=== PATIENT | male | born 2000 | race Two or more races ===

== ENCOUNTER 2020-05-20 10:58 | Emergency (ER) | payer SELFPAY ==
[~2020-05-20] VITALS: Ht 165.1 cm; Wt 68.1 kg
[~2020-05-20 10:58] MED LIST: CIPR250T30 PO; LACT1TAB24 PO; METR500T PO
[2020-05-20 11:16] VITALS: BP 158/94
[2020-05-20] MEDS ORDERED: IBUP-1007 PO (11:54)
--- NOTE | 2020-05-20 11:54 | PHYS DOC ---
Past Medical History Past Medical History: No Pertinent History Past Surgical History: No Surgical History Smoking Status: Never Smoker Alcohol Use: None Drug Use: None General Adult EDM: Chief Complaint: THUMB HPI: HPI: Patient is a 19-year-old male who presents with chief complaint of right thumb injury. He states yesterday he dropped an approximately 10 pound weight on it while working out. He states he has noticed pain to the dorsal aspect of the right thumb. He does note some limitations in active range of motion due to the pain. He has not tried medicine at home. He notes mild swelling. He denies any bleeding under the nail bed. Denies any wrist pain. Denies any pain over the anatomic snuffbox. Denies numbness tingling. Denies weakness. No other complaints. Review of Systems: Review of Systems: Constitutional: Denies fever or chills. [] Eyes: Denies change in visual acuity. [] HENT: Denies nasal congestion or sore throat. [] Respiratory: Denies cough or shortness of breath. [] Cardiovascular: Denies chest pain or edema. [] GI: Denies abdominal pain, nausea, vomiting, bloody stools or diarrhea. [] : Denies dysuria. [] Musculoskeletal: Positive for arthralgia Integument: Denies rash. [] Neurologic: Denies headache, focal weakness or sensory changes. [] Endocrine: Denies polyuria or polydipsia. [] Lymphatic: Denies swollen glands. [] Psychiatric: Denies depression or anxiety. [] Heart Score: Risk Factors: Risk Factors: DM, Current or recent (<one month) smoker, HTN, HLP, family history of CAD, obesity. Risk Scores: Score 0 - 3: 2.5% MACE over next 6 weeks - Discharge Home Score 4 - 6: 20.3% MACE over next 6 weeks - Admit for Clinical Observation Score 7 - 10: 72.7% MACE over next 6 weeks - Early Invasive Strategies Allergies: Allergies: Allergies Coded Allergies Type Severity Reaction Last Updated Verified No Known Drug Allergies 05/19/19 No Physical Exam: PE: Constitutional: Well developed, well nourished, no acute distress, non-toxic appearance. [] HENT: Normocephalic, atraumatic, bilateral external ears normal, oropharynx moist, no oral exudates, nose normal. [] Eyes: PERRLA, EOMI, conjunctiva normal, no discharge. [] Neck: Normal range of motion, no tenderness, supple, no stridor. [] Cardiovascular:Heart rate regular rhythm, no murmur [] Lungs & Thorax: Bilateral breath sounds clear to auscultation [] Abdomen: soft, no tenderness, no masses, no pulsatile masses. [] Skin: Warm, dry, no erythema, no rash. [] Back: No tenderness, no CVA tenderness. [] Extremities: R HAND/WRIST: Tenderness to palpation present at the dorsal aspect of the proximal right thumb.. Anatomic snuffbox without tenderness to palpation. Joints exhibit active range of motion without ligamentous laxity or instability. All tendons tested actively and against resistance without laxity. Subungual hematomas and nail injuries are absent. Radial pulse is present; +2/4. Capillary refill is less than 2 seconds. Sensation is intact in the median, ulnar and radial nerve distributions. Strength is intact in the median, ulnar and radial nerve distributions. Cyanosis, erythema, and pallor are absent. Neurologic: Alert and oriented X 3, normal motor function, normal sensory function, no focal deficits noted. [] Psychologic: Affect normal, judgement normal, mood normal. [] Current Patient Data: Vital Signs: Vital Signs Date Time Temp Pulse Resp B/P (MAP) Pulse Ox O2 Delivery O2 Flow Rate FiO2 05/20/20 11:16 98.2 98 18 158/94 (115) 98 Room Air 98.2 EKG: EKG: [] Radiology/Procedures: Radiology/Procedures: [][facility] [address] [place] [address] IMAGING REPORT Signed PATIENT: SYED DUBONACCOUNT: [id number] : 2000 LOCATION: ER AGE: 19 SEX: M EXAM STATUS: REG ER ORD. PHYSICIAN: BARBARA MCKAY DO REASON: dropped weight on R tumb yesterday PROCEDURE: HAND RIGHT 3V HAND RIGHT 3V History: Reason: dropped weight on R tumb yesterday / Spl. Instructions: / History: Technique: 3 views right hand. Comparison: None. Findings: Normal alignment. No fracture. Impression: 1. No acute osseous abnormality. Electronically signed by: Rob Pradhan DO (05/20/2020 11:53 AM) [facility] DICTATED and SIGNED BY: ROB PRADHAN DO DATE: 05/20/20 6154 Course & Med Decision Making: Course & Med Decision Making Pertinent Labs and Imaging studies reviewed. (See chart for details) Patient is a 19-year-old male who presents with chief complaint of right thumb injury. X-ray negative for acute fracture. No tenderness over the anatomic snuffbox. He was provided a right thumb splint. No indication for thumb spica splint. He was encouraged to use anti-inflammatories. Return precautions discussed and understood. Stable for discharge home. Dragon Disclaimer: Stephanie Disclaimer: This electronic medical record was generated, in whole or in part, using a voice recognition dictation system. Departure Departure Disposition: 01 HOME, SELF-CARE Condition: GOOD Referrals: NO PCP (PCP) Patient Instructions: Thumb Sprain Additional Instructions: [facility] [address] [place] [address] [facility] [address] [place] [address] [facility] [address] [facility] [place] [address] [facility] [address] [place] [address] [facility] [address] [place] [address] [facility] [address] [place] [address] [facility]um[facility] [address] [place] [address] [facility] [address] [place] [address] [facility] [address] [place] [address] [facility] [address] [place] [address] Scripts Ibuprofen (IBUPROFEN) 600 Mg Tablet 600 MG PO PRN Q6HRS PRN for PAIN, #20 TAB take with food or milk Prov: BARBARA MCKAY DO 05/20/20 Justicifation of Admission Dx: Justifications for Admission: Justification of Admission Dx: N/A BARBARA MCKAY DO May 20, 2020 11:54
== END 2020-05-20 12:40 | disposition home or self-care (01) ==
LOC: ER 10:58
DX: M79.644 Pain in right finger(s) (principal); R60.0 Localized edema
CPT/HCPCS: 29130; 73130; 99283

== ENCOUNTER 2020-06-01 13:39 | Emergency (ER) | payer SELFPAY ==
[~2020-06-01] VITALS: Ht 167.6 cm; Wt 70.0 kg
[~2020-06-01 13:39] MED LIST changes: +IBUP-1007 PO
[2020-06-01 14:02] VITALS: BP 133/69
[2020-06-01] MEDS ORDERED: IV NORMAL SALINE 1000ML BAG 1,000 ML IV ONE (14:30)
[2020-06-01] MEDS ORDERED: fentaNYL PF VIAL 100 MCG/2 ML VIAL IV ONE (14:30)
[2020-06-01] MEDS ORDERED: ACETAMINOPHEN 500 MG TABLET PO ONE (14:30)
[2020-06-01] MEDS ORDERED: ONDANSETRON PF 4 MG/2 ML VIAL. IV ONE (14:30)
[2020-06-01 14:34] LABS: BASO % 1 % (0-3); EOS % 0 % (0-3); HEMATOCRIT 45.2 % (39.0-53.0); HEMOGLOBIN 15.6 g/dL (13.0-17.5); LYMPH # 0.6 x10^3/uL (1.0-4.8); LYMPH % 7 % (24-48); MEAN CORPUSCULAR HEMOGLOBIN 30 pg (25-35); MEAN CORPUSCULAR HGB CONC 35 g/dL (31-37); MEAN CORPUSCULAR VOLUME 87 fL (79-100); MONO % 10 % (0-9); NEUT # 7.8 x10^3/uL (1.8-7.7); NEUT % 83 % (31-73); PLATELET COUNT 205 x10^3/uL (140-400); RED BLOOD COUNT 5.21 x10^6/uL (4.30-5.70); WHITE BLOOD COUNT 9.4 x10^3/uL (4.0-11.0)
[2020-06-01 14:43] LABS: CALCIUM 8.9 mg/dL (8.5-10.1); GFR 96.3; POTASSIUM 3.6 mmol/L (3.5-5.1)
[2020-06-01 14:49] LABS: TOTAL BILIRUBIN 0.6 mg/dL (0.2-1.0); TOTAL PROTEIN 8.1 g/dL (6.4-8.2)
[2020-06-01 14:51] LABS: BILIRUBIN,URINE SMALL (NEG); CLARITY,URINE CLEAR; COLOR,URINE AMBER; NITRITE,URINE NEGATIVE (NEG); PH,URINE 6.5 (<5.0-8.0); PROTEIN,URINE 30 mg/dL (NEG-TRACE)
[2020-06-01 14:54] LABS: BACTERIA,URINE 0 /HPF (0-FEW); RBC,URINE 0 /HPF (0-2); WBC,URINE 0 /HPF (0-4)
[2020-06-01] MEDS ORDERED: CONTRAST GIVEN. MC PRN (15:00)
[2020-06-01] MEDS ORDERED: IOHEXOL 300 MG/ML 100ML VIAL. IV ONE (15:00)
--- NOTE | 2020-06-01 15:38 | RAD ---
PQRS Compliance Statement: One or more of the following individualized dose reduction techniques were utilized for this examination: 1. Automated exposure control 2. Adjustment of the mA and/or kV according to patient size 3. Use of iterative reconstruction technique CT ABD PELV W/ IV CONTRST ONLY Clinical Indication: Reason: RLQ pain, fever and flank pain x3 days/ Comparison: CT abdomen and pelvis without contrast, May 19, 2019. Technique: Helical CT imaging of the abdomen and pelvis is performed after 75 cc of Omnipaque 300 IV contrast. Oral contrast not administered. Findings: Lung bases are clear. Cardiac size normal. The liver, gallbladder, spleen, pancreas, adrenal glands, abdominal aorta, and kidneys are normal. The stomach is unremarkable. There is no dilated small bowel. The appendix is normal. There are unchanged subcentimeter pericecal lymph nodes. No colon wall thickening is identified. No abdominal adenopathy or free fluid. The urinary bladder is normal. The prostate and seminal vesicles are normal. There is no pelvic free fluid. Bilateral inguinal lymph nodes may be reactive. There is bilateral L5 spondylolysis. There is mild grade 1 anterolisthesis of L5 on S1. There is mild grade 1 retrolisthesis of L4 on L5. These findings are stable. IMPRESSION: No acute abdominal or pelvic abnormality. Electronically signed by: Simone Frias MD (06/01/2020 3:34 PM) [id number]
[2020-06-01] MEDS ORDERED: ONDA4TAB7 PO (15:58)
--- NOTE | 2020-06-01 15:59 | PHYS DOC ---
Past Medical History Past Medical History: No Pertinent History Past Surgical History: No Surgical History Smoking Status: Never Smoker Alcohol Use: None Drug Use: None General Adult EDM: Chief Complaint: FLANK PAIN HPI: HPI: Patient is a 19 year old male who presents to the emergency department with complaints of right flank, and right lower quadrant abdominal pain for the last 3 days. Patient reports nausea but denies any vomiting, diarrhea, dysuria, hematuria, increased urinary frequency, or difficulty voiding. He denies any sore throat, headache, ear pain, body aches, fatigue, rash, shortness of breath, or cough. Patient denies any recent ill exposures or concern of COVID-19 infect ion. He states he has not taken anything for relief of his pain or fever today. He currently rates the pain a 9 out of 10 on the pain scale, he denies any radiation of the pain. Patient denies any alleviating factors, the pain is worse with palpation. Review of Systems: Review of Systems: Constitutional: Reports fever Eyes: Denies change in visual acuity. [] HENT: Denies nasal congestion or sore throat. [] Respiratory: Denies cough or shortness of breath. [] Cardiovascular: Denies chest pain or edema. [] GI: See HPI : See HPI Musculoskeletal: Denies back pain or joint pain. [] Integument: Denies rash. [] Neurologic: Denies headache Psychiatric: Denies depression or anxiety. [] Heart Score: Risk Factors: Risk Factors: DM, Current or recent (<one month) smoker, HTN, HLP, family history of CAD, obesity. Risk Scores: Score 0 - 3: 2.5% MACE over next 6 weeks - Discharge Home Score 4 - 6: 20.3% MACE over next 6 weeks - Admit for Clinical Observation Score 7 - 10: 72.7% MACE over next 6 weeks - Early Invasive Strategies Current Medications: Current Medications Medications (Trade) Dose Ordered Sig/Lidia Start Time Stop Time Status Last Admin Dose Admin Acetaminophen (Tylenol) 1,000 mg 1X ONCE 06/01/20 14:30 06/01/20 14:31 DC 06/01/20 14:33 1,000 MG Fentanyl Citrate (Fentanyl 2ml Vial) 50 mcg 1X ONCE 06/01/20 14:30 06/01/20 14:31 DC 06/01/20 14:34 50 MCG Info (CONTRAST GIVEN -- Rx MONITORING) 1 each PRN DAILY PRN 06/01/20 15:00 06/03/20 14:59 Iohexol (Omnipaque 300 Mg/ml) 75 ml 1X ONCE 06/01/20 15:00 06/01/20 15:01 DC 06/01/20 15:08 75 ML Ondansetron HCl (Zofran) 4 mg 1X ONCE 06/01/20 14:30 06/01/20 14:31 DC 06/01/20 14:34 4 MG Sodium Chloride 1,000 ml @ 1,000 mls/hr 1X ONCE 06/01/20 14:30 06/01/20 15:29 DC 06/01/20 14:34 1,000 MLS/HR Allergies: Allergies: Allergies Coded Allergies Type Severity Reaction Last Updated Verified No Known Drug Allergies 05/19/19 No Physical Exam: PE: Constitutional: Well developed, well nourished, no acute distress, ill appearance HENT: Normocephalic, atraumatic, bilateral external ears normal, oropharynx moist, no oral exudates, nose normal. [] Eyes: PERRLA, EOMI, conjunctiva normal, no discharge. [] Neck: Normal range of motion, no stridor. [] Cardiovascular:Heart rate regular tachycardic rhythm, no murmur [] Lungs & Thorax: Respirations even and unlabored, no retractions, no respiratory distress, lungs CTA [] Abdomen: Bowel sounds normal, soft, right lower quadrant TTP, no rebound tenderness, no guarding, tenderness with palpation over McBurney's point, negative Rovsing's, negative psoas signs, no masses, no pulsatile masses. [] Skin: Warm, dry, no erythema, no rash. [] Back: No tenderness, no CVA tenderness. [] Extremities: No cyanosis, ROM intact, no edema. [] Neurologic: Alert and oriented X 3, no focal deficits noted. [] Psychologic: Affect normal, judgement normal, mood normal. [] Current Patient Data: Labs: Laboratory Tests Test 06/01/20 14:00 06/01/20 14:25 Urine Collection Type Unknown Urine Color Angely Urine Clarity Clear Urine pH 6.5 (<5.0-8.0) Urine Specific Baldwin >=1.030 (1.000-1.030) Urine Protein 30 mg/dL (NEG-TRACE) Urine Glucose (UA) 100 mg/dL (NEG) Urine Ketones (Stick) 15 mg/dL (NEG) Urine Blood Negative (NEG) Urine Nitrite Negative (NEG) Urine Bilirubin Small (NEG) Urine Urobilinogen Dipstick 1.0 mg/dL (0.2 mg/dL) Urine Leukocyte Esterase Negative (NEG) Urine RBC 0 /HPF (0-2) Urine WBC 0 /HPF (0-4) Urine Bacteria 0 /HPF (0-FEW) Urine Mucus Mod /LPF White Blood Count 9.4 x10^3/uL (4.0-11.0) Red Blood Count 5.21 x10^6/uL (4.30-5.70) Hemoglobin 15.6 g/dL (13.0-17.5) Hematocrit 45.2 % (39.0-53.0) Mean Corpuscular Volume 87 fL (79-100) Mean Corpuscular Hemoglobin 30 pg (25-35) Mean Corpuscular Hemoglobin Concent 35 g/dL (31-37) Red Cell Distribution Width 13.0 % (11.5-14.5) Platelet Count 205 x10^3/uL (140-400) Neutrophils (%) (Auto) 83 % (31-73) H Lymphocytes (%) (Auto) 7 % (24-48) L Monocytes (%) (Auto) 10 % (0-9) H Eosinophils (%) (Auto) 0 % (0-3) Basophils (%) (Auto) 1 % (0-3) Neutrophils # (Auto) 7.8 x10^3/uL (1.8-7.7) H Lymphocytes # (Auto) 0.6 x10^3/uL (1.0-4.8) L Monocytes # (Auto) 1.0 x10^3/uL (0.0-1.1) Eosinophils # (Auto) 0.0 x10^3/uL (0.0-0.7) Basophils # (Auto) 0.0 x10^3/uL (0.0-0.2) Sodium Level 137 mmol/L (136-145) Potassium Level 3.6 mmol/L (3.5-5.1) Chloride Level 102 mmol/L (98-107) Carbon Dioxide Level 28 mmol/L (21-32) Anion Gap 7 (6-14) Blood Urea Nitrogen 16 mg/dL (8-26) Creatinine 1.0 mg/dL (0.7-1.3) Estimated GFR (Cockcroft-Gault) 96.3 BUN/Creatinine Ratio 16 (6-20) Glucose Level 119 mg/dL (70-99) H Lactic Acid Level 1.4 mmol/L (0.4-2.0) Calcium Level 8.9 mg/dL (8.5-10.1) Magnesium Level 2.0 mg/dL (1.8-2.4) Total Bilirubin 0.6 mg/dL (0.2-1.0) Aspartate Amino Transferase (AST) 21 U/L (15-37) Alanine Aminotransferase (ALT) 39 U/L (16-63) Alkaline Phosphatase 86 U/L (46-116) Total Protein 8.1 g/dL (6.4-8.2) Albumin 4.0 g/dL (3.4-5.0) Albumin/Globulin Ratio 1.0 (1.0-1.7) Lipase 64 U/L (73-393) L Laboratory Tests 06/01/20 14:25 Laboratory Tests 06/01/20 14:25 Vital Signs: Vital Signs Date Time Temp Pulse Resp B/P (MAP) Pulse Ox O2 Delivery O2 Flow Rate FiO2 06/01/20 14:02 100.1 119 18 133/69 (90) 98 Room Air 100.1 EKG: EKG: [] Radiology/Procedures: Radiology/Procedures: PROCEDURE: CT ABD PELV W/ IV CONTRST ONLY PQRS Compliance Statement: One or more of the following individualized dose reduction techniques were utilized for this examination: 1. Automated exposure control 2. Adjustment of the mA and/or kV according to patient size 3. Use of iterative reconstruction technique CT ABD PELV W/ IV CONTRST ONLY Clinical Indication: Reason: RLQ pain, fever and flank pain x3 days/ Comparison: CT abdomen and pelvis without contrast, May 19, 2019. Technique: Helical CT imaging of the abdomen and pelvis is performed after 75 cc of Omnipaque 300 IV contrast. Oral contrast not administered. Findings: Lung bases are clear. Cardiac size normal. The liver, gallbladder, spleen, pancreas, adrenal glands, abdominal aorta, and kidneys are normal. The stomach is unremarkable. There is no dilated small bowel. The appendix is normal. There are unchanged subcentimeter pericecal lymph nodes. No colon wall thickening is identified. No abdominal adenopathy or free fluid. The urinary bladder is normal. The prostate and seminal vesicles are normal. There is no pelvic free fluid. Bilateral inguinal lymph nodes may be reactive. There is bilateral L5 spondylolysis. There is mild grade 1 anterolisthesis of L5 on S1. There is mild grade 1 retrolisthesis of L4 on L5. These findings are stable. IMPRESSION: No acute abdominal or pelvic abnormality.[] Course & Med Decision Making: Course & Med Decision Making Pertinent Labs and Imaging studies reviewed. (See chart for details) 19-year-old male presents to the emergency department with complaints of right flank pain for 3 days. Physical exam is concerning for acute appendicitis, however CT abdomen revealed no acute findings. CBC is unremarkable, CMP is unremarkable, UA is unremarkable. COVID-19 test has been ordered. Patient was given 1 L of normal saline, 4 mg of Zofran, 50 mcg of fentanyl, and a gram of p.o. Tylenol in the emergency department. His heart rate reduced to the 90s after these medications. Patient was advised of the normal findings and concern for probable COVID-19 infection. Patient was encouraged to follow the COVID-19 instructions for home quarantine until he knew the results of his test. Patient verbalized an understanding of home care, medications, follow-up, and return to ED instructions and was in agreement with the plan of care. [] COVID-19 CRITERIA: The patient was evaluated during the global COVID-19 pandemic, and that diagnosis was suspected/considered upon their initial presentation. Their evaluation, treatment and testing was consistent with current guidelines for patients who present with complaints or symptoms that may be related to COVID-19. Dragon Disclaimer: Dragon Disclaimer: This electronic medical record was generated, in whole or in part, using a voice recognition dictation system. Departure Departure Impression: Primary Impression: Acute right flank pain Additional Impression: Person under investigation for COVID-19 Disposition: 01 HOME, SELF-CARE Condition: STABLE Referrals: NO PCP (PCP) Patient Instructions: Flank Pain, [id number] Additional Instructions: You have been tested for or diagnosed with COVID-19. It is an infection caused by a new type of coronavirus. COVID-19 will cause cold-like or mild flu symptoms in most. It can cause more severe symptoms like problems breathing in some. There is no treatment for COVID-19. The body will clear the infection over time. Self-care will help to ease discomfort. Steps to Take: Self-Care Rest as needed. Healthy habits may help you feel better. Steps include: Choose healthy foods including fruits and vegetables. Drink water throughout the day. Get plenty of sleep each night. If you smoke, try to quit. It may ease breathing. Avoid alcohol. Keep Others Healthy The virus can spread to others. Droplets are released every time you sneeze or cough. The droplets can get into the mouth, nose, or eyes of people near you and lead to infection. To lower the chances of spreading COVID-19 to others: Stay at home until your doctor has said it is safe to leave. If you tested positive this will mean staying isolated until both of the following are true: At least 7 days have passed since the start of illness. You are free of fever for at least 72 hours without the use of medicine. During this time: - Avoid public areas, events, or transportation. Do not return to work or school until your doctor has said it is safe to do so. - Call ahead if you need to go to a medical center. Let them know you may have COVID-19. It will help them guide you where to go. They may also ask you to wear a facemask when you come to the office. - If you call for emergency medical services, let them know you may have COVID- 19. While at home: - Try to avoid close contact with others. Stay about 6 feet away. - If possible, spend most of your time in a separate room from others. - Use a face mask if you will be in close contact with others such as sharing a room or vehicle. - Have someone wipe down common surfaces in the home. Use household engineering mgr every day on areas like doorknobs, counters, or sinks. - Cough or sneeze into a tissue. Throw the tissue away right after use. If a tissue is not available, cough or sneeze into your elbow. - Wash your hands often. Wash them after sneezing or coughing. Use soap and water and wash for at least 20 seconds. Alcohol based hand grave cleaner can be used if soap and water is not available. - Do not prepare food for others. Avoid sharing personal items like forks, spoons, or toothbrushes. - Avoid close contact with pets while you are sick. There is no evidence of the virus passing to pets. This is a safety step until more is known about this virus. Isolation can be frustrating. Social interaction can help. Keep in touch with friends and family through phone and tech options. You can still interact with others in your home, just keep a safe distance of about 6 feet. Follow-up: Your doctors office will check in with you to see if there are any changes in your health. You may be asked to keep track of symptoms to share with them. They will also let you know when you are clear to be in public again. Problems to Look Out For: Contact your doctor if your recovery is not going as you expect. Get emergency care if you have problems such as: - Trouble breathing - Nonstop chest pain or pressure - Changes in awareness, confusion, or problems waking - Lips or face have bluish color - Worsening of symptoms If you think you have an emergency, call for emergency medical services right away. As taken from [facility] [address] [place] [address] [facility] [address] [place] [address] [facility] [address] [facility] [place] [address] [facility] [address] [place] [address] [facility] [address] [place] [address] [facility] [address] [place] [address] [facility] [address] [place] [address] [facility] [address] [place] [address] [employer] [facility] [address] [place] [address] [facility] [address] [place] [address] Scripts Ondansetron Hcl (ZOFRAN) 4 Mg Tablet 1 TAB PO Q6HRS PRN for NAUSEA/VOMITING for 4 Days, #16 TAB 0 Refills Prov: WILFRED GREEN APRN 06/01/20 Justicifation of Admission Dx: Justifications for Admission: Justification of Admission Dx: N/A COVID-19 Assessment: COVID-19 Patient Risks: Age 65 or older: No Sign of co-morbidity: No Exp to person + for COVID: No Exp to PUI: No Travel from affected area: No Lower respiratory symptoms: No Fever: Yes PPE Use: Full PPE with N95 mask or PAPR: Yes WILFRED GREEN LEGAL COMPLIANCE OFFICER Jun 01, 2020 15:59
--- NOTE | 2020-06-04 10:14 | NUR ---
IP: Attempted to contact pt to give the COVID + results. No answer. No ability to leave voicemail.
== END 2020-06-01 16:45 | disposition home or self-care (01) ==
LOC: ER 13:39
DX: U07.1 COVID-19 (principal); R10.31 Right lower quadrant pain; R11.0 Nausea; R50.9 Fever, unspecified
CPT/HCPCS: 36415; 74177; 80053; 81001; 83605; 83690; 83735; 85025; 96361; 96374; 96375; 99285; C9803; J2405; J3010; J7030; Q9967; U0003

== ENCOUNTER 2021-06-15 11:19 | Emergency (ER) | payer SELFPAY ==
[~2021-06-15] VITALS: Ht 167.6 cm; Wt 74.5 kg
[~2021-06-15 11:19] MED LIST changes: +ONDA4TAB7 PO
[2021-06-15] MEDS ORDERED: IV NORMAL SALINE 1000ML BAG 1,000 ML IV ONE (14:00)
[2021-06-15] MEDS ORDERED: FAMOTIDINE 20 MG/2 ML VIAL IVP ONE (14:00)
[2021-06-15] MEDS ORDERED: KETOROLAC 15 MG/ML VIAL. IVP ONE (14:00)
[2021-06-15 14:01] LABS: BASO # 0.1 x10^3/uL (0.0-0.2); BASO % 1 % (0-3); EOS # 0.1 x10^3/uL (0.0-0.7); EOS % 1 % (0-3); HEMATOCRIT 45.4 % (39.0-53.0); HEMOGLOBIN 15.9 g/dL (13.0-17.5); LYMPH # 1.3 x10^3/uL (1.0-4.8); LYMPH % 17 % (24-48); MEAN CORPUSCULAR HEMOGLOBIN 31 pg (25-35); MEAN CORPUSCULAR HGB CONC 35 g/dL (31-37); MEAN CORPUSCULAR VOLUME 87 fL (79-100); MONO # 0.6 x10^3/uL (0.0-1.1); MONO % 8 % (0-9); NEUT # 5.6 x10^3/uL (1.8-7.7); NEUT % 73 % (31-73); PLATELET COUNT 232 x10^3/uL (140-400); RED CELL DISTRIBUTION WIDTH 12.7 % (11.5-14.5); WHITE BLOOD COUNT 7.7 x10^3/uL (4.0-11.0)
[2021-06-15 14:28] LABS: BILIRUBIN,URINE NEGATIVE (NEG); CLARITY,URINE CLEAR; COLOR,URINE YELLOW; NITRITE,URINE NEGATIVE (NEG); PROTEIN,URINE NEGATIVE (NEG-TRACE); UROBILINOGEN,URINE 0.2 mg/dL (0.2 mg/dL)
[2021-06-15 14:31] LABS: CALCIUM 9.2 mg/dL (8.5-10.1); CREATININE 0.8 mg/dL (0.7-1.3); GFR 123.2; POTASSIUM 4.1 mmol/L (3.5-5.1)
[2021-06-15 14:33] LABS: ALBUMIN 4.2 g/dL (3.4-5.0); TOTAL BILIRUBIN 0.4 mg/dL (0.2-1.0); TOTAL PROTEIN 8.3 g/dL (6.4-8.2)
--- NOTE | 2021-06-15 14:39 | RAD ---
Exam Date: 06/15/2021 1:52 PM US ABDOMEN LIMITED Indication: Reason: RUQ pain, eval for cholecystitis / Spl. Instructions: / History: . TECHNIQUE: Multiple longitudinal and transverse sonographic images of the right upper quadrant and g allbladder are submitted for interpretation. FINDINGS: The liver is normal in size and echogenicity. The portal vein is patent, with hepatopetal flow. No focal intrahepatic abnormality is seen. The gallbladder is normal, without gallstones, gallbladder wall thickening or pericholecystic fluid. There is no biliary ductal dilatation, with the common bile duct measuring 3 mm. The visualized abdominal aorta, inferior vena cava and pancreas are within normal limits. There is n o upper abdominal ascites. The right kidney is normal in appearance, measuring 11.0 cm. IMPRESSION: Normal right upper quadrant abdominal ultrasound exam. Electronically signed by: Ahmet Bess MD (06/15/2021 2:36 PM) [facility]
[2021-06-15 14:44] LABS: BACTERIA,URINE 0 /HPF (0-FEW); RBC,URINE 0 /HPF (0-2); WBC,URINE 0 /HPF (0-4)
--- NOTE | 2021-06-15 14:49 | PHYS DOC ---
Past Medical History Past Medical History: No Pertinent History Past Surgical History: No Surgical History Smoking Status: Never Smoker Alcohol Use: Occasionally Drug Use: None General Adult EDM: Chief Complaint: ABDOMINAL PAIN HPI: HPI: 20-year-old male presents with report of right sided abdominal pain x2 weeks which has been intermittent in nature. Patient reports this morning he noticed some bright red blood on toilet paper after wiping. Denies any fever or chills. Denies nausea or vomiting. Patient does report some associated diarrhea which started today. Review of Systems: Review of Systems: Constitutional: Denies fever or chills Eyes: Denies redness or eye pain HENT: Denies nasal congestion or sore throat Respiratory: Denies cough or shortness of breath Cardiovascular: Denies chest pain or palpitations GI: Reports abdominal pain, diarrhea, hematochezia; denies nausea or vomiting : Denies dysuria or hematuria Musculoskeletal: Denies back pain or joint pain Integument: Denies rash or skin lesions Neurologic: Denies headache, focal weakness or sensory changes Complete systems were reviewed and found to be within normal limits, except as documented in this note. Heart Score: C/O Chest Pain: N/A Current Medications: Current Medications Medications (Trade) Dose Ordered Sig/Lidia Start Time Stop Time Status Last Admin Dose Admin Famotidine (Pepcid Vial) 20 mg 1X ONCE 06/15/21 14:00 06/15/21 14:01 DC 06/15/21 14:05 20 MG Ketorolac Tromethamine (Toradol 15mg Vial) 15 mg 1X ONCE 06/15/21 14:00 06/15/21 14:01 DC 06/15/21 14:08 15 MG Sodium Chloride 1,000 ml @ 1,000 mls/hr 1X ONCE 06/15/21 14:00 06/15/21 14:59 06/15/21 14:04 1,000 MLS/HR Allergies: Allergies: Allergies Coded Allergies Type Severity Reaction Last Updated Verified No Known Drug Allergies 06/15/21 No Physical Exam: PE: Constitutional: Well developed, well nourished, no acute distress, non-toxic appearance HENT: Normocephalic, atraumatic Eyes: Conjunctiva normal, no discharge Neck: Normal range of motion, supple Lungs & Thorax: No respiratory distress, equal chest rise and fall Abdomen: Soft, RUQ and epigastric tenderness, no guarding/rebound ten derness/distention Skin: Warm, dry, no erythema, no rash Back: No tenderness, no CVA tenderness Extremities: No tenderness, ROM intact, no edema Neurologic: Alert and oriented X 3, no focal deficits noted Psychologic: Affect normal, judgment normal Current Patient Data: Labs: Laboratory Tests Test 06/15/21 13:50 06/15/21 13:55 White Blood Count 7.7 x10^3/uL (4.0-11.0) Red Blood Count 5.20 x10^6/uL (4.30-5.70) Hemoglobin 15.9 g/dL (13.0-17.5) Hematocrit 45.4 % (39.0-53.0) Mean Corpuscular Volume 87 fL (79-100) Mean Corpuscular Hemoglobin 31 pg (25-35) Mean Corpuscular Hemoglobin Concent 35 g/dL (31-37) Red Cell Distribution Width 12.7 % (11.5-14.5) Platelet Count 232 x10^3/uL (140-400) Neutrophils (%) (Auto) 73 % (31-73) Lymphocytes (%) (Auto) 17 % (24-48) L Monocytes (%) (Auto) 8 % (0-9) Eosinophils (%) (Auto) 1 % (0-3) Basophils (%) (Auto) 1 % (0-3) Neutrophils # (Auto) 5.6 x10^3/uL (1.8-7.7) Lymphocytes # (Auto) 1.3 x10^3/uL (1.0-4.8) Monocytes # (Auto) 0.6 x10^3/uL (0.0-1.1) Eosinophils # (Auto) 0.1 x10^3/uL (0.0-0.7) Basophils # (Auto) 0.1 x10^3/uL (0.0-0.2) Urine Collection Type Unknown Urine Color Yellow Urine Clarity Clear Urine pH 6.0 (<5.0-8.0) Urine Specific [place] 1.020 (1.000-1.030) Urine Protein Negative mg/dL (NEG-TRACE) Urine Glucose (UA) Negative mg/dL (NEG) Urine Ketones (Stick) Negative mg/dL (NEG) Urine Blood Negative (NEG) Urine Nitrite Negative (NEG) Urine Bilirubin Negative (NEG) Urine Urobilinogen Dipstick 0.2 mg/dL (0.2 mg/dL) Urine Leukocyte Esterase Negative (NEG) Urine RBC 0 /HPF (0-2) Urine WBC 0 /HPF (0-4) Urine Bacteria 0 /HPF (0-FEW) Urine Mucus Slight /LPF Laboratory Tests 06/15/21 13:50 Vital Signs: Vital Signs Date Time Temp Pulse Resp B/P (MAP) Pulse Ox O2 Delivery O2 Flow Rate FiO2 06/15/21 14:16 89 20 147/85 (105) 96 Room Air 06/15/21 13:24 99.0 99.0 EKG: EKG: [] Radiology/Procedures: Radiology/Procedures: PROCEDURE: ABDOMEN LTD Exam Date: 06/15/2021 1:52 PM US ABDOMEN LIMITED Indication: Reason: RUQ pain, eval for cholecystitis / Spl. Instructions: / History: . TECHNIQUE: Multiple longitudinal and transverse sonographic images of the right upper quadrant and gallbladder are submitted for interpretation. FINDINGS: The liver is normal in size and echogenicity. The portal vein is patent, with hepatopetal flow. No focal intrahepatic abnormality is seen. The gallbladder is normal, without gallstones, gallbladder wall thickening or pericholecystic fluid. There is no biliary ductal dilatation, with the common bile duct measuring 3 mm. The visualized abdominal aorta, inferior vena cava and pancreas are within normal limits. There is no upper abdominal ascites. The right kidney is normal in appearance, measuring 11.0 cm. IMPRESSION: Normal right upper quadrant abdominal ultrasound exam. Electronically signed by: Ahmet Bess MD (06/15/2021 2:36 PM) [facility] Course & Med Decision Making: Course & Med Decision Making Pertinent Labs and Imaging studies reviewed. (See chart for details) Patient presents with right upper quadrant and epigastric abdominal pain that has been ongoing for intermittently for the past several weeks. Denies any fever or chills. Reports worse after eating. Patient also reports some bright red blood per rectum with one episode of diarrhea. Labs obtained and posted to chart. Given right upper quadrant concern for possible cholecystitis. Ultrasound obtained without significant finding. Patient stable for discharge with outpatient follow-up with PCP/GI. GI referral provided. Discussed findings and plan with patient, who acknowledges understanding and agreement. Stephanie Disclaimer: Stephanie Disclaimer: This electronic medical record was generated, in whole or in part, using a voice recognition dictation system. Departure Departure Impression: Primary Impression: Abdominal pain Qualified Codes: R10.11 - Right upper quadrant pain Additional Impression: Rectal bleeding Disposition: HOME / SELF CARE / HOMELESS Condition: STABLE Referrals: NO PCP (PCP) URIAH BURTON MD Patient Instructions: Abdominal Pain, [id number], Gastritis, Adult, [id number], Rectal Bleeding, [id number] Scripts Hydrocortisone Acetate (ANUSOL-HC) 25 Mg Supp.rect 1 SUPP RC BID for 7 Days, #14 SUPP 0 Refills Prov: PEDRO VAUGHAN DO 06/15/21 Famotidine (PEPCID) 20 Mg Tablet 20 MG PO BID, #20 TAB Prov: PEDRO VAUGHAN DO 06/15/21 Hyoscyamine Sulfate (LEVSIN-SL) 0.125 Mg Tab.subl 0.125 MG SL Q4-6HRS PRN for PAIN, #14 TAB Prov: PEDRO VAUGHAN DO 06/15/21 PEDRO VAUGHAN DO Jun 15, 2021 14:49
[2021-06-15 15:00] VITALS: BP 132/68
[2021-06-15] MEDS ORDERED: FAMO-63 PO (15:13)
[2021-06-15] MEDS ORDERED: HYDR25SU18 RC (15:13)
[2021-06-15] MEDS ORDERED: HYOS0.1265 SL (15:13)
== END 2021-06-15 15:24 | disposition home or self-care (01) ==
LOC: ER 11:19
DX: R10.11 Right upper quadrant pain (principal); K62.5 Hemorrhage of anus and rectum
CPT/HCPCS: 36415; 76705; 80053; 81001; 83605; 83690; 85025; 96361; 96374; 96375; 99285; J1885; J3490; J7030

== ENCOUNTER 2021-08-22 22:26 | Emergency (ER) | payer SELFPAY ==
[~2021-08-22] VITALS: Ht 167.6 cm; Wt 72.7 kg
[~2021-08-22 22:26] MED LIST changes: +FAMO-63 PO; +HYDR25SU18 RC; +HYOS0.1265 SL
--- NOTE | 2021-08-22 23:05 | PHYS DOC ---
Past Medical History Past Medical History: No Pertinent History Past Surgical History: No Surgical History Smoking Status: Never Smoker Alcohol Use: Occasionally Drug Use: None General Adult EDM: Chief Complaint: TESTICULAR PAIN OR INJURY HPI: HPI: Patient is a 20 year old patient with no significant past medical history presents today with right testicular swelling and right lower quadrant and right flank pain that started about 4 days ago. Patient states that he went to the emergency department in [place] for this exact pain. They apparently did an ultrasound which was normal. Discharged home with naproxen. Patient states that the pain did not go away and it is worsening. Patient states that the pain is rated at a 5 out of 10 right now but the pain comes and goes and gets much worse than this. Patient denies any urinary symptoms as well as any penile discharge. Patient states that his last sexual encounter was about 3 months ago and he did use condoms. Patient denies any fevers, chills, cough. Patient states he was also here about a month ago at [facility] for very similar pain coupled with bloody diarrhea. Review of Systems: Review of Systems: Constitutional: Denies fever or chills Eyes: Denies redness or eye pain HENT: Denies nasal congestion or sore throat Respiratory: Denies cough or shortness of breath Cardiovascular: Denies chest pain or palpitations GI: Denies abdominal pain, nausea, or vomiting : Denies dysuria or hematuria, endorses right testicular pain Musculoskeletal: Denies flank pain, endorses right flank pain Integument: Denies rash or skin lesions Neurologic: Denies headache, focal weakness or sensory changes Complete systems were reviewed and found to be within normal limits, except as documented in this note. Heart Score: C/O Chest Pain: No Allergies: Allergies: Allergies Coded Allergies Type Severity Reaction Last Updated Verified No Known Drug Allergies 06/15/21 No Physical Exam: PE: Constitutional: Well developed, well nourished, no acute distress, non-toxic appearance HENT: Normocephalic, atraumatic Eyes: PERRL, EOMI, conjunctiva normal, no discharge Neck: Normal range of motion, no tenderness, supple Lungs & Thorax: No respiratory distress, equal chest rise and fall Abdomen: Soft, some right lower quadrant tenderness as well as some right flank pain tenderness, no rebound, no guarding, bowel sounds x4 : Some right testicular swelling Skin: Warm, dry, no erythema, no rash Back: Some mild right flank pain Extremities: No tenderness, ROM intact, no edema Neurologic: Alert and oriented X 3, normal motor function, normal sensory function, no focal deficits noted Psychologic: Affect normal, judgment normal EKG: EK: Normal sinus rhythm at a rate of 72 bpm, normal axis, no significant ST segment changes, no T wave inversions, OR 140 ms, QRS 96 ms, QT/QTc 358/393 ms Radiology/Procedures: Radiology/Procedures: PROCEDURE: TESTICULAR/SCROTUM CLINICAL HISTORY: pain, swelling of right teste, COMPARISON: None available. TECHNIQUE: Ultrasound images of the scrotum was performed with osman-scale and color doppler. FINDINGS: Right testicle measures 4.2 x 3.2 x 2.9 cm. The left testicle measures 4.4 x 2.9 x 2.5 cm. There is no intratesticular abnormality. Testicular vascularity is symmetric and within normal limits. The right epididymis is heterogeneous and increased in size and hypervascular. The left epididymis is unremarkable. There is no hydrocele or varicocele.. No scrotal wall thickening or hyperemia is appreciated. IMPRESSION: The right epididymis is heterogeneous, enlarged, and hypervascular suggesting epididymitis. Electronically signed by: Simone Frias MD (08/23/2021 1:06 AM) [facility] Course & Med Decision Making: Course & Med Decision Making 20-year-old male patient with no significant past medical history is presenting with right testicle swelling that is been going on for about 4 days. Patient states that the pain does come and go. Patient has been seen in the ED for this about 4 days ago in [place] and found nothing on ultrasound. Patient was given naproxen on discharge. Ultrasound in the emergency department today of the right testicle showed evidence supporting epididymitis. Patient does have a slightly elevated white blood cell count. All other labs were unremarkable. Patient was treated with antibiotics stable for discharge. Patient stable for discharge with outpatient follow-up with PCP. Discussed findings and plan with patient, who acknowledges understanding and agreement. Stephanie Disclaimer: Stephanie Disclaimer: This electronic medical record was generated, in whole or in part, using a voice recognition dictation system. Departure Departure Impression: Primary Impression: Acute epididymitis Additional Impression: Genital warts Disposition: HOME / SELF CARE / HOMELESS Condition: STABLE Referrals: NO PCP (PCP) Patient Instructions: Epididymitis, Genital Warts, [id number] Additional Instructions: Use scrotal support (ie jock strap or compression shorts) to help support testicles. Avoid sexual activity. Scripts Naproxen (NAPROXEN) 375 Mg Tablet 375 MG PO TID PRN PRN for PAIN, #20 TAB Prov: PEDRO VAUGHAN DO 08/23/21 Podofilox (PODOFILOX) 3.5 Ml Solution 3.5 ML TP BID for Genital warts, #3.5 ML Apply to warts q12h x 3 days, then off next 4 days, repeat q week x 1-4 weeks until resolution. Prov: PEDRO VAUGHAN DO 08/23/21 Doxycycline Hyclate (DOXYCYCLINE HYCLATE) 100 Mg Capsule 1 CAP PO BID, #20 CAP Prov: PEDRO VAUGHAN DO 08/23/21 PEDRO VAUGHAN DO Aug 22, 2021 23:05
[2021-08-22 23:11] LABS: BASO # 0.1 x10^3/uL (0.0-0.2); BASO % 1 % (0-3); EOS # 0.1 x10^3/uL (0.0-0.7); EOS % 1 % (0-3); HEMATOCRIT 42.9 % (39.0-53.0); HEMOGLOBIN 14.9 g/dL (13.0-17.5); LYMPH % 17 % (24-48); MEAN CORPUSCULAR HEMOGLOBIN 30 pg (25-35); MEAN CORPUSCULAR HGB CONC 35 g/dL (31-37); MEAN CORPUSCULAR VOLUME 87 fL (79-100); MONO # 0.7 x10^3/uL (0.0-1.1); MONO % 6 % (0-9); NEUT # 8.7 x10^3/uL (1.8-7.7); NEUT % 75 % (31-73); PLATELET COUNT 276 x10^3/uL (140-400); RED BLOOD COUNT 4.94 x10^6/uL (4.30-5.70); RED CELL DISTRIBUTION WIDTH 12.6 % (11.5-14.5); WHITE BLOOD COUNT 11.6 x10^3/uL (4.0-11.0)
[2021-08-22 23:25] LABS: BILIRUBIN,URINE NEGATIVE (NEG); CLARITY,URINE CLEAR; COLOR,URINE YELLOW; NITRITE,URINE NEGATIVE (NEG); PROTEIN,URINE NEGATIVE (NEG-TRACE); UROBILINOGEN,URINE 0.2 mg/dL (0.2 mg/dL)
[2021-08-22] MEDS ORDERED: IV NORMAL SALINE 1000ML BAG 1,000 ML IV ONE (23:30)
[2021-08-22 23:34] LABS: BACTERIA,URINE 0 /HPF (0-FEW); RBC,URINE OCC /HPF (0-2); WBC,URINE 20-40 /HPF (0-4)
[2021-08-22 23:37] LABS: CALCIUM 8.9 mg/dL (8.5-10.1); CREATININE 1.1 mg/dL (0.7-1.3); GFR 85.3; POTASSIUM 3.6 mmol/L (3.5-5.1)
[2021-08-22 23:43] LABS: ALBUMIN 4.2 g/dL (3.4-5.0); TOTAL BILIRUBIN 0.5 mg/dL (0.2-1.0); TOTAL PROTEIN 8.3 g/dL (6.4-8.2)
--- NOTE | 2021-08-23 01:09 | RAD ---
CLINICAL HISTORY: pain, swelling of right teste, COMPARISON: None available. TECHNIQUE: Ultrasound images of the scrotum was performed with osman-scale and color doppler. FINDINGS: Right testicle measures 4.2 x 3.2 x 2.9 cm. The left testicle measures 4.4 x 2.9 x 2.5 cm. There is no intratesticular abnormality. Testicular vascularity is symmetric and within normal limits . The right epididymis is heterogeneous and increased in size and hypervascular. The left epididymis is unremarkable. There is no hydrocele or varicocele.. No scrotal wall thickening or hyperemia is appreciated. IMPRESSION: The right epididymis is heterogeneous, enlarged, and hypervascular suggesting epididymitis. Electronically signed by: Simone Frias MD (08/23/2021 1:06 AM) [facility]
[2021-08-23] MEDS ORDERED: HYDR-2761 PO ×3 (01:27→01:30)
[2021-08-23] MEDS ORDERED: DOXY100C3 PO (01:27)
[2021-08-23] MEDS ORDERED: PODO3.5S TP (01:27)
[2021-08-23] MEDS ORDERED: cefTRIAXone IM 500 MG VIAL. IM ONE (01:30)
[2021-08-23] MEDS ORDERED: DOXYCYCLINE HYCLATE 100 MG TABLET PO ONE (01:30)
[2021-08-23] MEDS ORDERED: NAPR-695 PO (01:32)
[2021-08-23 01:41] VITALS: BP 119/71
--- NOTE | 2021-08-23 01:47 | EKG ---
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
--- NOTE | 2021-08-23 01:56 | EKG ---
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
== END 2021-08-23 01:48 | disposition home or self-care (01) ==
LOC: ER 22:26
DX: N45.1 Epididymitis (principal); B07.8 Other viral warts
CPT/HCPCS: 76870; 80053; 81001; 83735; 85025; 87086; 87491; 87591; 93005; 96360; 96361; 96372; 99285; J0696; J7030

== ENCOUNTER 2022-01-12 08:20 | Emergency (ER) | payer SELFPAY ==
[~2022-01-12] VITALS: Ht 167.6 cm; Wt 75.0 kg
[~2022-01-12 08:20] MED LIST changes: +DOXY100C3 PO; +HYDR-2761 PO; +NAPR-695 PO; +PODO3.5S TP
[2022-01-12] MEDS ORDERED: FAMOTIDINE 20 MG/2 ML VIAL IVP ONE (09:00)
[2022-01-12] MEDS ORDERED: IV NORMAL SALINE 1000ML BAG 1,000 ML IV ONE (09:00)
[2022-01-12] MEDS ORDERED: ONDANSETRON PF 4 MG/2 ML VIAL. IVP ONE (09:00)
--- NOTE | 2022-01-12 09:00 | PHYS DOC ---
Past Medical History Past Medical History: No Pertinent History Additional Past Medical Histor: COLITIS Past Surgical History: No Surgical History Smoking Status: Never Smoker Alcohol Use: Occasionally Drug Use: None Adult General Chief Complaint Chief Complaint: FLANK PAIN HPI HPI Patient is a 21 year old male with right upper quadrant pain that started last night. Pain is intermittent and does seem to be related with eating. Patient also states he fees like there is some swelling in that area. States he noticed after eating some spicy food. He has been a little bit nauseated but is not thrown up. He has not had any fever, no diarrhea. No chest pain, shortness of breath. No trauma. Review of Systems Review of Systems Constitutional: Denies fever Eyes: Denies change in visual acuity or eye pain HENT: Denies sore throat Respiratory: Denies shortness of breath Cardiovascular: Denies chest pain GI: Reports abd pain : Denies dysuria Musculoskeletal: Denies back or extremity injury Integument: Denies rash or skin lesions Neurologic: Denies headache, focal weakness or sensory changes All other systems were reviewed and found to be within normal limits, except as documented in this note. Current Medications Current Medications Current Medications Medications (Trade) Dose Ordered Sig/Lidia Start Time Stop Time Status Last Admin Dose Admin Famotidine (Pepcid Vial) 20 mg 1X ONCE 01/12/22 09:00 01/12/22 09:01 DC 01/12/22 09:06 20 MG Ondansetron HCl (Zofran) 4 mg 1X ONCE 01/12/22 09:00 01/12/22 09:01 DC 01/12/22 09:04 4 MG Sodium Chloride 1,000 ml @ 1,000 mls/hr 1X ONCE 01/12/22 09:00 01/12/22 09:59 DC 01/12/22 09:04 1,000 MLS/HR Allergies Allergies Allergies Coded Allergies Type Severity Reaction Last Updated Verified No Known Drug Allergies 06/15/21 No Physical Exam Physical Exam Constitutional: Well developed, well nourished, no acute distress, non-toxic appearance. HENT: Normocephalic, atraumatic, bilateral external ears normal, mucosa moist, nose normal. Eyes: EOMI, conjunctiva normal, no discharge. Neck: Normal range of motion, supple, no stridor, no meningeal signs. Cardiovascular: Regular rate and rhythm Lungs & Thorax: Bilateral breath sounds clear to auscultation Abdomen: Soft, no tenderness or obvious masses, no guarding Skin: Warm, dry, no erythema, no rash. Extremities: No tenderness, no cyanosis, no clubbing, ROM intact, no edema. Neurologic: Alert and oriented, normal motor function, normal sensory function, no focal deficits noted. Psychologic: Affect normal, judgement normal, mood normal. Current Patient Data Vital Signs Vital Signs Date Time Temp Pulse Resp B/P (MAP) Pulse Ox O2 Delivery O2 Flow Rate FiO2 01/12/22 09:40 78 104/55 (71) 100 Room Air 01/12/22 08:39 97.9 16 97.9 Lab Values Laboratory Tests Test 01/12/22 08:40 01/12/22 09:00 01/12/22 09:10 Urine Collection Type Unknown Urine Color (Auto) Yellow Urine Turbidity Clear Urine pH (Auto) 6.5 (<5.0-8.0) Urine Specific [place] 1.027 (1.000-1.030) Urine Protein (Auto) Negative mg/dL (Negative) Urine Glucose (Auto)(UA) Negative mg/dL (Negative) Urine Ketones (Auto) Negative mg/dL (Negative) Urine Blood (Auto) Negative (Negative) Urine Nitrite Negative (Negative) Urine Bilirubin (Auto) Negative (Negative) Urine Urobilinogen (Auto) Normal mg/dL (Normal) Urine Leukocyte Esterase (Auto) Negative (Negative) Urine RBC 0 /HPF (0-2) Urine WBC Occ /HPF (0-4) Urine Squamous Epithelial Cells Few /LPF Urine Amorphous Sediment Present /HPF Urine Bacteria Few /HPF (0-FEW) Urine Mucus Mod /LPF White Blood Count 6.8 x10^3/uL (4.0-11.0) Red Blood Count 5.33 x10^6/uL (4.30-5.70) Hemoglobin 15.4 g/dL (13.0-17.5) Hematocrit 45.9 % (39.0-53.0) Mean Corpuscular Volume 86 fL (79-100) Mean Corpuscular Hemoglobin 29 pg (25-35) Mean Corpuscular Hemoglobin Concent 34 g/dL (31-37) Red Cell Distribution Width 13.1 % (11.5-14.5) Platelet Count 248 x10^3/uL (140-400) Neutrophils (%) (Auto) 66 % (31-73) Lymphocytes (%) (Auto) 25 % (24-48) Monocytes (%) (Auto) 7 % (0-9) Eosinophils (%) (Auto) 1 % (0-3) Basophils (%) (Auto) 1 % (0-3) Neutrophils # (Auto) 4.5 x10^3/uL (1.8-7.7) Lymphocytes # (Auto) 1.7 x10^3/uL (1.0-4.8) Monocytes # (Auto) 0.5 x10^3/uL (0.0-1.1) Eosinophils # (Auto) 0.1 x10^3/uL (0.0-0.7) Basophils # (Auto) 0.0 x10^3/uL (0.0-0.2) Sodium Level 139 mmol/L (136-145) Potassium Level 3.8 mmol/L (3.5-5.1) Chloride Level 102 mmol/L (98-107) Carbon Dioxide Level 31 mmol/L (21-32) Anion Gap 6 (6-14) Blood Urea Nitrogen 15 mg/dL (8-26) Creatinine 0.9 mg/dL (0.7-1.3) Estimated GFR (Cockcroft-Gault) 106.5 BUN/Creatinine Ratio 17 (6-20) Glucose Level 95 mg/dL (70-99) Calcium Level 9.3 mg/dL (8.5-10.1) Total Bilirubin 0.9 mg/dL (0.2-1.0) Aspartate Amino Transferase (AST) 19 U/L (15-37) Alanine Aminotransferase (ALT) 23 U/L (16-63) Alkaline Phosphatase 96 U/L (46-116) Total Protein 8.8 g/dL (6.4-8.2) H Albumin 4.5 g/dL (3.4-5.0) Albumin/Globulin Ratio 1.0 (1.0-1.7) Lipase 71 U/L (73-393) L Influenza Type A Antigen Negative (NEGATIVE) Influenza Type B Antigen Negative (NEGATIVE) SARS-CoV-2 Antigen (Rapid) Negative (NEGATIVE) Laboratory Tests 01/12/22 09:00 Laboratory Tests 01/12/22 09:00 EKG EKG [] Radiology/Procedures Radiology/Procedures [] Course & Med Decision Making Course & Med Decision Making Pertinent Labs and Imaging studies reviewed. (See chart for details) [] 21-year-old male with abdominal pain and nausea. Labs are unrevealing. Patient was given Pepcid and Zofran with relief of symptoms. We will give him prescriptions for the above medications, he is stable for discharge. Dragon Disclaimer Dragon Disclaimer This electronic medical record was generated, in whole or in part, using a voice recognition dictation system. Departure Departure Impression: Primary Impression: Abdominal pain Additional Impression: Nausea Disposition: HOME / SELF CARE / HOMELESS Condition: STABLE Referrals: NO PCP (PCP) Patient Instructions: Abdominal Pain, Nausea, Adult Scripts Famotidine (PEPCID) 20 Mg Tablet 20 MG PO BID for 30 Days, #60 TAB Prov: JULIANO BLACK MD 01/12/22 Ondansetron Hcl (ONDANSETRON HCL) 4 Mg Tablet 1 TAB PO PRN Q6HRS, #10 TAB 1 Refill Prov: JULIANO BLACK MD 01/12/22 Problem Qualifiers JULIANO BLACK MD Jan 12, 2022 09:00
[2022-01-12 09:15] LABS: BASO % 1 % (0-3); EOS # 0.1 x10^3/uL (0.0-0.7); EOS % 1 % (0-3); HEMATOCRIT 45.9 % (39.0-53.0); HEMOGLOBIN 15.4 g/dL (13.0-17.5); LYMPH # 1.7 x10^3/uL (1.0-4.8); LYMPH % 25 % (24-48); MEAN CORPUSCULAR HEMOGLOBIN 29 pg (25-35); MEAN CORPUSCULAR HGB CONC 34 g/dL (31-37); MEAN CORPUSCULAR VOLUME 86 fL (79-100); MONO # 0.5 x10^3/uL (0.0-1.1); MONO % 7 % (0-9); NEUT # 4.5 x10^3/uL (1.8-7.7); NEUT % 66 % (31-73); PLATELET COUNT 248 x10^3/uL (140-400); RED BLOOD COUNT 5.33 x10^6/uL (4.30-5.70); RED CELL DISTRIBUTION WIDTH 13.1 % (11.5-14.5); WHITE BLOOD COUNT 6.8 x10^3/uL (4.0-11.0)
[2022-01-12 09:16] LABS: AMORPHOUS SEDIMENT,UR PRESENT /HPF; BACTERIA,URINE FEW /HPF (0-FEW); RBC,URINE 0 /HPF (0-2); WBC,URINE OCC /HPF (0-4)
[2022-01-12 09:24] LABS: CALCIUM 9.3 mg/dL (8.5-10.1); CREATININE 0.9 mg/dL (0.7-1.3); GFR 106.5; POTASSIUM 3.8 mmol/L (3.5-5.1)
[2022-01-12 09:34] LABS: ALBUMIN 4.5 g/dL (3.4-5.0); TOTAL BILIRUBIN 0.9 mg/dL (0.2-1.0); TOTAL PROTEIN 8.8 g/dL (6.4-8.2)
[2022-01-12 09:39] LABS: INFLUENZA A PATIENT NEGATIVE (NEGATIVE); INFLUENZA B PATIENT NEGATIVE (NEGATIVE)
[2022-01-12 09:40] VITALS: BP 104/55
[2022-01-12] MEDS ORDERED: FAMO-63 PO (10:10)
[2022-01-12] MEDS ORDERED: ONDA-84 PO (10:10)
== END 2022-01-12 10:30 | disposition home or self-care (01) ==
LOC: ER 08:20
DX: R10.11 Right upper quadrant pain (principal); R11.0 Nausea; Z20.822 Contact with and (suspected) exposure to COVID-19
CPT/HCPCS: 36415; 80053; 81001; 83690; 85025; 87428; 96361; 96374; 96375; 99284; J2405; J3490; J7030